=== PATIENT | male | born 1970 | race Caucasian/White ===

== ENCOUNTER 2021-05-17 11:07 | Emergency (ER) | payer OTHER ==
[2021-05-17] MEDS ORDERED: Sodium Chloride 0.9% 10 ML Syringe FLUSH PRN (11:34)
--- NOTE | 2021-05-17 11:41 | EDM.PDOC ---
ED HPI GENERAL MEDICAL PROBLEM - General Chief Complaint: Respiratory Problem Stated Complaint: WEAK OUT OF BREATH Time Seen by Provider: 05/17/21 11:25 Source of Information: Reports: Patient, Old Records History Limitations: Reports: No Limitations - History of Present Illness INITIAL COMMENTS - FREE TEXT/NARRATIVE: 50 yo male with a pHx of PE for which is is prescribed Xarelto presents with increased HR and BASILIO getting worse over the past week. This is the first time he has been seen for this concern. He admits he forgot to take his Xarelto recently for about 3 days. He has not had a fever, cough, chest pain, calf pain, leg swelling, melena, hematochezia or vomiting. He has Factor V Leiden deficiency. He believes his normal resting HR is around 70. Onset: Gradual Onset Date: 05/11/21 Duration: Week(s): (1), Getting Worse Location: Reports: Chest Quality: Reports: Other (no pain) Severity: Moderate Improves with: Reports: Rest Worsens with: Reports: Movement (exertion) Context: Reports: Other (See HPI) Associated Symptoms: Reports: Shortness of Breath, Other (tachycardia). Denies: Chest Pain, Cough, Diaphoresis, Fever/Chills, Nausea/Vomiting, Syncope Treatments CRABBER: Reports: Other (see below) (none) - Related Data Allergies Allergy/AdvReac Type Severity Reaction Status Date / Time No Known Allergies Allergy Verified 05/17/21 11:23 Home Meds: Home Meds Metoprolol Succinate 50 mg PO DAILY #15 tab.er.24h 05/17/21 [Rx] Rivaroxaban [Xarelto] 1 tab PO BEDTIME 05/17/21 [History] Past Medical History Respiratory History: Reports: PE Musculoskeletal History: Reports: Fracture Social & Family History - Tobacco Use Tobacco Use Status *Q: Never Tobacco User ED ROS GENERAL - Review of Systems Review Of Systems: See Below Constitutional: Reports: No Symptoms HEENT: Reports: No Symptoms Respiratory: Reports: No Symptoms Cardiovascular: Reports: Dyspnea on Exertion, Other (tachycardia) Endocrine: Reports: No Symptoms GI/Abdominal: Reports: No Symptoms : Reports: No Symptoms Musculoskeletal: Reports: No Symptoms Skin: Reports: No Symptoms Neurological: Reports: No Symptoms Psychiatric: Reports: No Symptoms ED EXAM, GENERAL - Physical Exam Exam: See Below Exam Limited By: No Limitations General Appearance: Alert, WD/WN, No Apparent Distress Eye Exam: Bilateral Eye: Normal Inspection Ears: Normal External Exam, Normal Canal, Hearing Grossly Normal, Normal TMs Ear Exam: Bilateral Ear: Auricle Normal, Canal Normal, TM normal Nose: Normal Inspection, No Blood Throat/Mouth: Normal Inspection, Normal Lips, Normal Oropharynx, Normal Voice, No Airway Compromise Head: Atraumatic, Normocephalic Neck: Normal Inspection Respiratory/Chest: No Respiratory Distress, Lungs Clear, Normal Breath Sounds, No Accessory Muscle Use GI/Abdominal: Soft, Non-Tender Back Exam: Normal Inspection. No: CVA Tenderness (R), CVA Tenderness (L) Extremities: Normal Inspection, Normal Range of Motion, Non-Tender, No Pedal Edema. No: Pedal Edema, Fortino's Sign Neurological: Alert, Oriented, CN II-XII Intact, Normal Cognition, No Motor/Sensory Deficits Psychiatric: Normal Affect, Normal Mood Skin Exam: Warm, Dry, Intact, Normal Color, No Rash #1 Interpretation EKG Date: 05/17/21 Time: 12:25 Rhythm: NSR Rate (Beats/Min): 98 Douglas: Normal P-Wave: Present QRS: Normal ST-T: Normal QT: Normal Comparison: NA - No Prior EKG Course - Vital Signs Last Recorded V/S: Last Vital Signs Temp 36.2 C 05/17/21 11:32 Pulse 104 H 05/17/21 11:32 Resp 14 05/17/21 11:32 BP 134/94 H 05/17/21 11:32 Pulse Ox 95 05/17/21 11:32 - Orders/Labs/Meds Orders: Active Orders 24 hr Category Date Time Status Cardiac Monitoring [RC] .As Directed Care 05/17/21 11:33 Active Chest 2V [CR] Stat Exams 05/17/21 12:38 Ordered PRO B-TYPE NATRIUR PEPT,BNPPRO [CHEM] Stat Lab 05/17/21 12:49 Ordered UA W/MICROSCOPIC [URIN] Stat Lab 05/17/21 11:33 Ordered Sodium Chloride 0.9% [Saline Flush] Med 05/17/21 11:34 Active 10 ml FLUSH ASDIRECTED PRN Saline Lock Insert [OM.PC] Routine Oth 05/17/21 11:34 Ordered EKG 12 Lead [EK] Routine Ther 05/17/21 11:32 Ordered Medication Orders Sodium Chloride (Sodium Chloride 0.9% 10 Ml Syringe) 10 ml FLUSH ASDIRECTED PRN PRN Reason: Keep Vein Open Labs: Laboratory Tests 05/17/21 05/17/21 05/17/21 Range/Units 11:50 11:50 11:50 WBC 6.3 (4.5-11.0) K/uL RBC 4.44 (4.30-5.90) M/uL Hgb 14.8 (12.0-15.0) g/dL Hct 42.4 (40.0-54.0) % MCV 96 (80-98) fL MCH 33 H (27-31) pg MCHC 35 (32-36) % Plt Count 198 (150-400) K/uL D-Dimer, Quantitative 576.28 H (0.0-500.0) ng/mL Sodium 142 (140-148) mmol/L Potassium 4.1 (3.6-5.2) mmol/L Chloride 102 (100-108) mmol/L Carbon Dioxide 25 (21-32) mmol/L Anion Gap 14.8 H (5.0-14.0) mmol/L BUN 7 (7-18) mg/dL Creatinine 1.4 H (0.8-1.3) mg/dL Est Cr Clr Drug Dosing 79.22 mL/min Estimated GFR (MDRD) 54 L (>60) Glucose 114 H (74-106) mg/dL Calcium 9.3 (8.5-10.1) mg/dL Troponin I < 0.017 (0.000-0.056) ng/mL TSH, Ultra Sensitive (0.358-3.740) uIU/mL 05/17/21 Range/Units 11:50 WBC (4.5-11.0) K/uL RBC (4.30-5.90) M/uL Hgb (12.0-15.0) g/dL Hct (40.0-54.0) % MCV (80-98) fL MCH (27-31) pg MCHC (32-36) % Plt Count (150-400) K/uL D-Dimer, Quantitative (0.0-500.0) ng/mL Sodium (140-148) mmol/L Potassium (3.6-5.2) mmol/L Chloride (100-108) mmol/L Carbon Dioxide (21-32) mmol/L Anion Gap (5.0-14.0) mmol/L BUN (7-18) mg/dL Creatinine (0.8-1.3) mg/dL Est Cr Clr Drug Dosing mL/min Estimated GFR (MDRD) (>60) Glucose (74-106) mg/dL Calcium (8.5-10.1) mg/dL Troponin I (0.000-0.056) ng/mL TSH, Ultra Sensitive 1.281 (0.358-3.740) uIU/mL Meds: Medications Generic Name Dose Route Start Last Admin Trade Name Freq PRN Reason Stop Dose Admin Sodium Chloride 10 ml 05/17/21 11:34 Sodium Chloride 0.9% 10 Ml Syringe FLUSH ASDIRECTED PRN Keep Vein Open Discontinued Medications Generic Name Dose Route Start Last Admin Trade Name Freq PRN Reason Stop Dose Admin Metoprolol Succinate 50 mg 05/17/21 13:15 Metoprolol Succinate 50 Mg Tab.Er PO 05/17/21 13:16 ONETIME ONE - Radiology Interpretation Free Text/Narrative:: CXR-neg Departure - Departure Time of Disposition: 13:17 Disposition: Home, Self-Care 01 Condition: Good Clinical Impression: Tachycardia HTN (hypertension) Qualifiers: Hypertension type: unspecified Qualified Code(s): I10 - Essential (primary) hypertension - Discharge Information *PRESCRIPTION DRUG MONITORING PROGRAM REVIEWED*: Not Applicable *COPY OF PRESCRIPTION DRUG MONITORING REPORT IN PATIENT NICKO: Not Applicable Prescriptions: Metoprolol Succinate 50 mg PO DAILY #15 tab.er.24h Referrals: PCP,None [Primary Care Provider] - Forms: ED Department Discharge Additional Instructions: Take metoprolol as directed. F/U with Dr. Choi later this week for recheck. Return if worse. Sepsis Event Note (ED) - Evaluation Sepsis Screening Result: No Definite Risk - Focused Exam Vital Signs: Vital Signs Temp Pulse Resp BP Pulse Ox 05/17/21 11:32 36.2 C 104 H 14 134/94 H 95 - My Orders Last 24 Hours: My Active Orders 05/17/21 11:32 EKG 12 Lead [EK] Routine 05/17/21 11:33 Cardiac Monitoring [RC] .As Directed UA W/MICROSCOPIC [URIN] Stat 05/17/21 11:34 Sodium Chloride 0.9% [Saline Flush] 10 ml FLUSH ASDIRECTED PRN Saline Lock Insert [OM.PC] Routine 05/17/21 12:38 Chest 2V [CR] Stat 05/17/21 12:49 PRO B-TYPE NATRIUR PEPT,BNPPRO [CHEM] Stat - Assessment/Plan Last 24 Hours: My Active Orders 05/17/21 11:32 EKG 12 Lead [EK] Routine 05/17/21 11:33 Cardiac Monitoring [RC] .As Directed UA W/MICROSCOPIC [URIN] Stat 05/17/21 11:34 Sodium Chloride 0.9% [Saline Flush] 10 ml FLUSH ASDIRECTED PRN Saline Lock Insert [OM.PC] Routine 05/17/21 12:38 Chest 2V [CR] Stat 05/17/21 12:49 PRO B-TYPE NATRIUR PEPT,BNPPRO [CHEM] Stat
[2021-05-17] MEDS ORDERED: Metoprolol Succinate 50 MG Tab.ER PO ONE (13:15)
--- NOTE | 2021-05-18 10:47 | CR ---
CHEST: 2 view CLINICAL HISTORY:Tachycardia, BASILIO COMPARISON:None FINDINGS: The heart size, pulmonary vascularity and hilar structures are normal. No infiltrate effusion or pneumothorax is seen. IMPRESSION: No acute cardiopulmonary process.
== END 2021-05-17 13:33 | disposition home or self-care (01) ==
LOC: JP.ED 11:07
DX: R00.0 Tachycardia, unspecified (principal); I10 Essential (primary) hypertension; Z86.711 Personal history of pulmonary embolism; Z79.01 Long term (current) use of anticoagulants
CPT/HCPCS: 36415; 71046; 80048; 83880; 84443; 84484; 85027; 85379; 93005; 99285; A9270

== ENCOUNTER 2022-04-16 13:40 | Emergency (ER) | payer OTHER | END 2022-04-16 16:34 | disposition home or self-care (01) | LOC: JP.ED 13:40 | DX: R55 Syncope and collapse (principal); I10 Essential (primary) hypertension | CPT/HCPCS: 36415; 80048; 81001; 84484; 85025; 99282; 99284 ==